=== PATIENT | female | born 1980 | race Caucasian/White ===

== ENCOUNTER 2021-06-10 13:02 | Emergency (ER) | payer SELFPAY ==
[~2021-06-10] VITALS: Ht 162.6 cm; Wt 55.0 kg
[2021-06-10] MEDS ORDERED: SODIUM CHLORIDE 0.9% 1,000 ML IV ONE (15:00)
[2021-06-10 15:15] LABS: BASOPHILS % 0.8 % (0.0-2.0); EOSINOPHILS % 6.6 % (0.0-5.0); HEMATOCRIT. 42.5 % (36.0-48.0); HEMOGLOBIN. 14.2 g/dL (12.0-16.0); LYMPHOCYTES % 28.5 % (20.0-50.0); MEAN CORPUSCULAR HEMOGLOBIN 29.1 pg (28.0-32.0); MEAN CORPUSCULAR VOLUME 87.4 fL (81.0-99.0); MEAN PLATELET VOLUME 9.2 fl (7.4-10.4); MONOCYTES % 5.1 % (2.0-8.0); PLATELET 255 x1000/uL (130-400); RED BLOOD CELL COUNT 4.87 mill/uL (4.2-5.4); RED CELL DISTRIBUTION WIDTH 14.5 % (11.6-14.6)
[2021-06-10 15:19] LABS: CHLORIDE 106 mEq/L (98-107)
[2021-06-10 15:22] LABS: ETHANOL BLOOD < 10 mg/dL
[2021-06-10 15:34] LABS: HCG SCREEN NEGATIVE
[2021-06-11 01:41] VITALS: BP 108/71
== END 2021-06-11 02:03 ==
LOC: ER 13:28
DX: R55 Syncope and collapse (principal); F20.9 Schizophrenia, unspecified
CPT/HCPCS: 36415; 80048; 80307; 80320; 80329; 84703; 85025; 93005; 96360; 99285; G0480